=== PATIENT | female | born 1955 | race African-American/Black ===

== ENCOUNTER 2018-06-26 10:21 | Emergency (ER) | payer MEDICARE ==
[~2018-06-26] VITALS: Ht 157.5 cm; Wt 69.0 kg
[~2018-06-26 10:21] MED LIST: ACET-1600 PO; AMLO10TA6 PO; ATAZ300C PO; CELE200C PO; EMTR1TAB8 PO; FENT1PAT9 TD; FLUO20CA19 PO; GABA100C PO; HYDR25TA6 PO; POTA8TAB PO; RITO100C PO; TRAZ-137 PO; [UNRECOGNIZED DRUG - CODE] TP
[2018-06-26 10:27] VITALS: BP 112/79
== END 2018-06-26 12:20 | disposition home or self-care (01) ==
LOC: ED 12:00
DX: F14.180 Cocaine abuse with cocaine-induced anxiety disorder (principal); I10 Essential (primary) hypertension; F17.200 Nicotine dependence, unspecified, uncomplicated; Z21 Asymptomatic human immunodeficiency virus [HIV] infection status; Z91.14 Patient's other noncompliance with medication regimen
CPT/HCPCS: 99281

== ENCOUNTER 2019-10-31 16:45 | Emergency (ER) | payer MEDICARE, OTHER ==
[~2019-10-31] VITALS: Ht 157.5 cm; Wt 70.6 kg
[~2019-10-31 16:45] MED LIST changes: -AMLO10TA6 PO; +AMLO10TA8 PO; +AMLO2.5T5 PO; +BICT1TAB PO; +BUPR100T7 PO; +CYCL-259 PO; +DOXY100T23 PO; +FLUO40CA9 PO; +MELO7.5T31 PO; +OXYC5TAB3 PO
[2019-10-31 16:57] VITALS: BP 149/102
--- NOTE | 2019-10-31 17:25 | NUR ---
NO ANSWER WHEN CALLED FOR ROOM IN [facility] AT THIS TIME.
== END 2019-10-31 19:43 | disposition home or self-care (01) ==
LOC: ED 19:25
DX: S93.601A Unspecified sprain of right foot, initial encounter (principal); I10 Essential (primary) hypertension; Z21 Asymptomatic human immunodeficiency virus [HIV] infection status; W01.0XXA Fall on same level from slipping, tripping and stumbling without subsequent striking against object, initial encounter; Y93.89 Activity, other specified; Y92.009 Unspecified place in unspecified non-institutional (private) residence as the place of occurrence of the external cause; Y99.8 Other external cause status
CPT/HCPCS: 29515; 99283